=== PATIENT | male | born 1970 | race African-American/Black ===

== ENCOUNTER 2017-08-25 11:20 | Emergency (ER) | payer SELFPAY ==
[~2017-08-25] VITALS: Ht 188 cm; Wt 100.0 kg
[~2017-08-25 11:20] MED LIST: CLIN1CAP5 PO
[2017-08-25 11:25] VITALS: BP 117/74; PULSE 71; RESP 16; TEMP 97.9; O2SAT 99
--- NOTE | 2017-08-25 11:45 | PD ---
HPI Chief Complaint: Cold / Flu Symptoms Time Seen by Provider: 11:39 Travel History International Travel<30 days: No Contact w/Intl Traveler<30days: No Traveled to known affect area: No History of Present Illness HPI 47-year-old Afro-French male presents to the emergency Department with 3 day history of upper respiratory symptoms including head congestion, cough, sore throat, runny nose, body aches. He states fever yesterday where he "couldn't get out of bed". He states he feels somewhat better today. He has a good appetite. No nausea no vomiting or diarrhea. He denies significant wheezing or chest pain. He is allergic to penicillin. PFSH Past Medical History Medical History: Denies Significant Hx Tetanus Vaccination: > 5 Years Influenza Vaccination: No Past Surgical History Surgical History: No Previous Surgery Social History Alcohol Use: Yes (OCCASIONAL BEER) Tobacco Use: Yes (07/13 ppd) Substance Use: No Allergies-Medications (Allergen,Severity, Reaction): Coded Allergies: penicillin G (Unverified Adverse Reaction, Severe, SWELLING, 08/25/17) Reported Meds & Prescriptions Reported Meds & Active Scripts Active No Active Prescriptions or Reported Medications Review of Systems Except as stated in HPI: all other systems reviewed are Neg General / Constitutional: Positive: Fever, Chills Eyes: No: Visual changes HENT: Positive: Headaches, Sore Throat (subjective), Rhinitis, Rhinorrhea, Congestion, No: Vertigo, Lightheadedness, Nosebleed, Neck Stiffness, Neck Pain, Dental Difficulties, Earache Cardiovascular: No: Chest Pain or Discomfort Respiratory: Positive: Cough, No: Shortness of Breath, Wheezing, Sneezing, Pleuritic Pain Gastrointestinal: No: Nausea, Vomiting, Diarrhea, Abdominal Pain Genitourinary: No: Dysuria Musculoskeletal: Positive: Myalgias, No: Pain Skin: No Rash Neurologic: No: Weakness Psychiatric: No: Depression Endocrine: No: Polydipsia Hematologic/Lymphatic: No: Easy Bruising Physical Exam Narrative GENERAL: Patient appears in no acute distress. SKIN: Warm and dry. Normal color. Normal turgor HEAD: Atraumatic. Normocephalic. No sinus tenderness to palpation. EYES: Pupils equal and round. No scleral icterus. No injection or drainage. ENT: No nasal bleeding with moderate white nasal discharge. Mucous membranes pink and moist. TMs are clear bilaterally. Pharynx is clear. Airway is patent. NECK: Trachea midline. Supple and nontender. CARDIOVASCULAR: Regular rate and rhythm. RESPIRATORY: No accessory muscle use. Clear to auscultation. Breath sounds equal bilaterally. GASTROINTESTINAL: Abdomen soft, non-tender, nondistended. Hepatic and splenic margins not palpable. MUSCULOSKELETAL: Extremities without clubbing, cyanosis, or edema. No obvious deformities. Patient has generalized muscle tenderness with palpation. NEUROLOGICAL: Awake and alert. No obvious cranial nerve deficits. Motor grossly within normal limits. Five out of 5 muscle strength in the arms and legs. Normal speech. PSYCHIATRIC: Appropriate mood and affect; insight and judgment normal. Data Data Last Documented VS Vital Signs Date Time Temp Pulse Resp B/P (MAP) Pulse Ox O2 Delivery O2 Flow Rate FiO2 08/25/17 11:25 97.9 71 16 117/74 (88) 99 Room Air MDM Medical Decision Making Medical Screen Exam Complete: Yes Emergency Medical Condition: No Differential Diagnosis Influenza. Upper respiratory infection. Febrile illness. Narrative Course A medical screening exam was performed: At the time of evaluation the presenting medical condition was determined not to be of an emergent nature. The patient was given the option of receiving additional care, but declined. Patient was given options for additional community resources from which to obtain care. The Patient Has Been advised to seek medical attention for their presenting complaint. The patient has been advised to return to the ER at any time if an emergent condition develops. Scripts No Active Prescriptions or Reported Meds Condition: Stable Yan Vila Aug 25, 2017 11:45
== END 2017-08-25 12:00 | disposition left against medical advice (07) ==
LOC: NEPD 11:20
DX: R05 Cough (principal)
CPT/HCPCS: 99281